=== PATIENT | female | born 1965 | race Hispanic/Latino ===

== ENCOUNTER 2017-07-15 05:44 | Day surgery (SDC) | payer BC ==
[2017-07-13 13:05] VITALS: BP 136/69
[2017-07-13 13:17] LABS: BASOPHILS % (AUTO) 1.3 % (0.0-5.0); EOSINOPHILS % (AUTO) 1.9 % (0.0-8.0); HEMATOCRIT 22.5 % (36-48); LYMPHOCYTES % (AUTO) 27.3 % (21.0-51.0); MEAN CORPUSCULAR HEMOGLOBIN 29.7 pg (27.0-33.0); MEAN CORPUSCULAR HGB CONC 32.3 g/dL (32.0-36.0); MEAN CORPUSCULAR VOLUME 91.7 fL (79-99); MONOCYTES % (AUTO) 8.2 % (3.0-13.0); NEUTROPHILS % (AUTO) 61.3 % (40.0-77.0); NUCLEATED RED BLOOD CELLS 0.1 % (0.0-0.19); PLATELET COUNT (AUTO) 483 K/uL (130-400); RED BLOOD CELL COUNT(AUTO) 2.45 MIL/uL (4.00-5.50); RED CELL DISTRIBUTION WIDTH 15.2 % (11.0-15.5); WHITE BLOOD COUNT (AUTO) 6.1 K/uL (4.8-10.8)
[~2017-07-15] VITALS: Ht 161.3 cm; Wt 70.8 kg
[2017-07-15] VITALS (15 sets, daily range): BP systolic 86–159; BP diastolic 47–84
[~2017-07-15 05:44] MED LIST: CHOL500050 PO; ESTROGEN COMPOUND PO; LEVO75TA10 PO; MULTIVITAMIN PO; OMEGA FISH OIL; PROGESTERONE PO
[2017-07-15] MEDS ORDERED: LACTATED RINGERS 1000ML 1,000 ML IV ONE (06:35)
[2017-07-15] MEDS ORDERED: IRON45TA10 PO (06:53)
[2017-07-15] MEDS ORDERED: IBUP-14 PO (06:56)
[2017-07-15] MEDS ORDERED: ONDANSETRON HCL 4 MG/2 ML VIAL ONE (07:17)
[2017-07-15] MEDS ORDERED: MIDAZOLAM HCL 1 MG/ML 2ML VIAL ONE (07:18)
[2017-07-15] MEDS ORDERED: LIDOCAINE PF 2% 5ML ABBOJECT ONE (07:18)
[2017-07-15] MEDS ORDERED: DEXAMETHASONE SOD PHOSPHATE 10MG/ML 1ML VIAL ONE (07:18)
[2017-07-15] MEDS ORDERED: FENTANYL CITRATE PF 50 MCG/1 ML 2ML VIAL ONE (07:19)
[2017-07-15] MEDS ORDERED: PROPOFOL 10 MG/ML 20ML VIAL IV ONE (07:19)
[2017-07-15] MEDS ORDERED: IBUP-2353 PO (07:25)
[2017-07-15] MEDS ORDERED: KETOROLAC TROMETHAMINE 30MG/ML ONE (08:23)
[2017-07-15] MEDS ORDERED: MEPERIDINE-PF 50 MG/ML SYG ONE (08:50)
== END 2017-07-15 14:10 | disposition home or self-care (01) ==
LOC: DAH 05:44
PROVIDERS: ATTEND Obstetrics & Gynecology
DX: N95.0 Postmenopausal bleeding (principal); R93.8 Abnormal findings on diagnostic imaging of other specified body structures; D25.9 Leiomyoma of uterus, unspecified; Z79.899 Other long term (current) drug therapy; Z88.0 Allergy status to penicillin; Z88.8 Allergy status to other drugs, medicaments and biological substances
CPT/HCPCS: 58558; 36415; 84703; 85025; 88305; A4351; A4355; J1100; J1885; J2001; J2175; J2250; J2405; J2704; J3010; J7030; J7120